=== PATIENT | male | born 1970 | race Two or more races ===

== ENCOUNTER 2022-01-19 10:43 | Emergency (ER) | payer BC ==
[~2022-01-19] VITALS: Ht 172.7 cm; Wt 76.2 kg
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
--- NOTE | 2022-01-19 11:05 | NUR ---
[email or web address], medical screening exam in progress
--- NOTE | 2022-01-19 11:27 | NUR ---
Patient ambulated to bathroom with steady gait, pending CT scans@this [email or web address]. commercial kitchen service technician Spike notified.
--- NOTE | 2022-01-19 12:14 | NUR ---
Patient discharged to home in stable condition with steady gait. Written and verbal after care instructions were given to patient. Patient verbalized understanding and compliance of discharge instructions. Stressed follow up with primary doctor and ENT docotr or return to ER for worsening of signs and symptoms. Copies of all the ER tests' results were given to patient. All belongings were handed to patient as well.
== END 2022-01-19 12:14 | disposition home or self-care (01) ==
LOC: ER 10:49
DX: S02.2XXA Fracture of nasal bones, initial encounter for closed fracture (principal); S13.4XXA Sprain of ligaments of cervical spine, initial encounter; V43.52XA Car driver injured in collision with other type car in traffic accident, initial encounter; W22.11XA Striking against or struck by driver side automobile airbag, initial encounter; Y92.411 Interstate highway as the place of occurrence of the external cause; J32.0 Chronic maxillary sinusitis
CPT/HCPCS: 70450; 70486; 72125; A4663